=== PATIENT | male | born 1950 | race African-American/Black ===

== ENCOUNTER 2016-11-19 18:01 | Emergency (ER) | payer OTHER ==
[~2016-11-19] VITALS: Ht 180.3 cm; Wt 61.2 kg
[~2016-11-19 18:01] MED LIST: DIALYVITE TABL1 EAC1 PO; MEGA MULTI FOR1 EAC1 PO; NORVASC5 MG ORAL; RENAGEL400 MG ORAL; SENSIPAR30 MG ORAL
[2016-11-19 18:37] VITALS: BP 142/84
--- NOTE | 2016-11-19 19:06 | Emergency Room Report ---
History of Present Illness General Chief Complaint: Upper Respiratory Illness Source: Patient Present Illness HPI 66 YO male presents emergency department complaining of productive cough x5 days with increased phlegm and subjective fevers and chills. Patient also reports rhinorrhea and intermittent nasal congestion. Patient states he is on dialysis 3 times a week denies edema in the lower extremities patient denies shortness of breath patient states he is having multiple episodes of coughing in an attempt to clear his throat and eventually is having productive coughs. he reports several ill contacts with her family members patient denies recent hospitalization. he denies cardiac history or diabetes patient reports that kidney failure secondary to dehydration. Denies CP, Palpitations, LOC, AMS, dizziness, Changes in Vision, Sensation, paresthesias, or a sudden severe headache. Allergies: Coded Allergies: No Known Allergies (Verified Allergy, Unknown, 04/29/09) Patient History Past Medical History: see triage record Past Surgical History: none Pertinent Family History: none Immunizations: UTD Reviewed Nursing Documentation: PMH: Agreed, PSxH: Agreed Nursing Documentation-PMH Hx Cardiac Problems: No Hx Hypertension: No Hx Pacemaker: No Hx Asthma: No Hx COPD: No Hx Diabetes: No Hx Cancer: No Hx Gastrointestinal Problems: No Hx Dialysis: Yes - T,TH, Sat Hx Neurological Problems: No Hx Cerebrovascular Accident: No Hx Seizures: No Review of Systems All Other Systems: negative except mentioned in HPI Physical Exam Vital Signs Date Time Temp Pulse Resp B/P Pulse Ox O2 Delivery O2 Flow Rate FiO2 11/19/16 18:13 98.4 84 18 147/81 96 Room Air Sp02 EP Interpretation: reviewed, normal General Appearance: no apparent distress, alert, GCS 15, non-toxic Head: normocephalic, atraumatic Eyes: bilateral eye PERRL, bilateral eye normal inspection ENT: hearing grossly normal, normal pharynx, no angioedema, normal voice, TMs + canals normal, uvula midline, nasal congestion - clear rhinorrhea noted bilaterally Neck: full range of motion, no meningismus, no bony tend, supple/symm/no masses Respiratory: normal breath sounds - in all upper lung garcia, no respiratory distress, no retraction, no accessory muscle use, crackles - scant expiratory bibasilar crackles, speaking full sentences Cardiovascular #1: regular rate, rhythm, no edema, normal capillary refill Cardiovascular #2: 2+ radial (R), 2+ radial (L), 2+ dorsalis pedis (R), 2+ dorsalis pedis (L) Gastrointestinal: non tender, soft, no guarding, no rebound Rectal: deferred Genitourinary: normal inspection, no CVA tenderness Musculoskeletal: back normal, gait/station normal, normal range of motion, non- tender, no calf tenderness Neurologic: alert, oriented x3, responsive, motor strength/tone normal, sensory intact, cerebellar normal, normal gait, speech normal Psychiatric: judgement/insight normal, memory normal, mood/affect normal, no suicidal/homicidal ideation Skin: normal color, no rash, warm/dry, well hydrated Lymphatic: no adenopathy Medical Decision Making PA Attestation Dr. Salcedo is my supervising Physician whom patient management has been discussed with. Diagnostic Impression: Primary Impression: History of renal dialysis Additional Impression: Pneumonia Qualified Codes: J18.9 - Pneumonia, unspecified organism ER Course 66 YO male presents emergency department complaining of productive cough x5 days with increased phlegm and subjective fevers and chills. Patient also reports rhinorrhea and intermittent nasal congestion. Patient states he is on dialysis 3 times a week denies edema in the lower extremities patient denies shortness of breath patient states he is having multiple episodes of coughing in an attempt to clear his throat and eventually is having productive coughs. he reports several ill contacts with her family members patient denies recent hospitalization. he denies cardiac history or diabetes patient reports that kidney failure secondary to dehydration. Ddx considered but are not limited to URI, pneumonia, PE, strep pharyngitis, meningitis. Vital signs: Pt. is afebrile, the remaining VS are WNL, oxygenating at 96%, non- tachycardic H&PE are most consistent with URI suspicious for pneumonia, bibasilar crackles, pt. does not exhibit increased respiratory effort, no fevers recorded in ED. Pt. is NAD, no LE edema. due to pt. hx of dialysis, and ill contacts with productive cough I believe this pt. should be covered with oral antibiotics, no evidence to suggest fluid over load at this time. ORDERS: none required at this time, the diagnosis is clinical ED INTERVENTIONS: None required at this time. . d/w pt and responsible green party ( daughter) reasoning for putting pt. on abx, and d/w them that close follow up is necessary to return with any worsening or new symptoms. DISCHARGE: At this time pt. is stable for d/c to home. Will provide printed patient care instructions, and any necessary prescriptions. Care plan and follow up instructions have been discussed with the patient prior to discharge. Last Vital Signs Date Time Temp Pulse Resp B/P Pulse Ox O2 Delivery O2 Flow Rate FiO2 11/19/16 18:38 84 18 Room Air 11/19/16 18:37 98.3 142/84 97 Disposition: HOME, SELF-CARE Condition: Stable Scripts Guaifenesin/Dextromethorphan (Robitussin Cough-Chest Dm Liq) 118 Ml Liquid 5 ML PO Q6HR for 7 Days, #118 ML Prov: Salud Gonzales 11/19/16 Levofloxacin* (LEVAQUIN*) 750 Mg Tablet 750 MG ORAL DAILY for 7 Days, #7 TAB Prov: Salud Gonzales 11/19/16 Referrals: NON PHYSICIAN (PCP) Patient Instructions: Upper Respiratory Infection, Adult Additional Instructions: Take medications as directed. Follow up with PCP in 3 days Return sooner to ED if new symptoms occur, or current symptoms become worse. - Please note that this Emergency Department Report was dictated using [employer] technology software, occasionally this can lead to erroneous entry secondary to interpretation by the dictation equipment. Salud Gonzales Nov 19, 2016 19:06
[2016-11-19] MEDS ORDERED: LEVAQUIN750 MG ORAL (19:21)
[2016-11-19] MEDS ORDERED: ROBITUSSIN COU118 M4 PO (19:21)
[2016-11-19 19:37] VITALS: BP 142/84
== END 2016-11-19 19:40 | disposition home or self-care (01) ==
LOC: EMR 18:50
DX: J18.9 Pneumonia, unspecified organism (principal); N28.9 Disorder of kidney and ureter, unspecified; Z99.2 Dependence on renal dialysis
CPT/HCPCS: 99284